=== PATIENT | female | born 1935 | race Caucasian/White ===

== ENCOUNTER 2017-01-27 11:21 | Emergency (ER) | payer MEDICARE ==
[~2017-01-27] VITALS: Ht 172.7 cm; Wt 118.7 kg
[~2017-01-27 11:21] MED LIST: ALPR0.25 PO; BIOTCAP PO; COZA100T PO; GLUCTAB6 PO; LEVEMIR SQ; LEVO150T46 PO; LEXA10TA PO; METF-324 PO; MULT1TAB46 PO; OMEP20TA PO; SIMV40TA PO; TOPR50TA PO; TRAM50 PO
[2017-01-27 11:25] VITALS: BP 179/75; PULSE 71; RESP 16; O2SAT 96
--- NOTE | 2017-01-27 11:40 | PD ---
HPI Chief Complaint: Head Injury Time Seen by Provider: 11:29 Travel History International Travel<30 days: No Contact w/Intl Traveler<30days: No Traveled to known affect area: No History of Present Illness HPI bout 30 min lpta, trip and fall, and struck her right forehead region, no loc, no bleeding, witnessed, states 4/10, worse when touched and alleviated by ice pack placed on bump....denies assoc symptoms of n/v/d/cp/abdpain/back pain/ visual changes/syncope/ chart and rn notes reviewed pcp is dr mercedes all:wanda inhibitors pmhx: htn, hyperchol, cabbg, and lap band PFSH Past Medical History Hx Anticoagulant Therapy: Yes Anxiety: Yes Heart Rhythm Problems: No Cancer: No Cardiac Catheterization: Yes Cardiovascular Problems: Yes (htn on meds, bypass 4 vessels, [place] ?) High Cholesterol: Yes Congestive Heart Failure: No Diabetes: Yes (type 2) Diminished Hearing: No Glaucoma: No Hepatitis: No Hiatal Hernia: No Hypertension: Yes Respiratory: Yes (SLEEP APNEA (CPAP)) Immunizations Current: Yes Myocardial Infarction: No Thyroid Disease: Yes ?: Not Menopausal: Yes Past Surgical History Cardiac Surgery: Yes (CABG) Coronary Artery Bypass Graft: Yes (FEB 2008- QUADRUPLE BYPASS) Eye Surgery: Yes (CATARACT SX RAY.) Oral Surgery: Yes (T & A) Pacemaker: No Tonsillectomy: Yes Other Surgery: Yes (LAP BAND) Social History Alcohol Use: Yes (occ) Tobacco Use: No Substance Use: No Allergies-Medications (Allergen,Severity, Reaction): Coded Allergies: benazepril (Unverified Allergy, Severe, 01/27/17) captopril (Unverified Allergy, Severe, 01/27/17) enalaprilat (Unverified Allergy, Severe, 01/27/17) fosinopril (Unverified Allergy, Severe, 01/27/17) lisinopril (Unverified Allergy, Severe, 01/27/17) quinapril (Unverified Allergy, Severe, 01/27/17) Reported Meds & Prescriptions Reported Meds & Active Scripts Active Reported Tresiba Flextouch Pen Inj (Insulin Degludec Inj) 600 unit/3 ML Pen 32 Units SQ Simvastatin 20 Mg Tab 20 Mg PO DAILY Omeprazole 20 Mg Tab 20 Mg PO DAILY Multiple Vitamin 1 Tab 1 Tab PO DAILY Metoprolol Succinate ER 24 HR (Metoprolol Succinate) 50 Mg Tab 75 Mg PO DAILY Metformin ER (Metformin HCl) 500 Mg Lou 500 Mg PO BID With evening meal Losartan (Losartan Potassium) 100 Mg Tab 100 Mg PO DAILY Levothyroxine (Levothyroxine Sodium) 137 Mcg Tab 137 Mcg PO DAILY Glucosamine-Chondroitin 500-400 Mg Tab 1 Tab PO DAILY Biotin 5 Mg Cap 5 Mg PO Alprazolam 0.25 Mg Tab 0.25 Mg PO Q6H PRN Review of Systems Except as stated in HPI: all other systems reviewed are Neg General / Constitutional: No: Fever Eyes: No: Visual changes HENT: Positive: Headaches Cardiovascular: No: Chest Pain or Discomfort Respiratory: No: Shortness of Breath Gastrointestinal: No: Abdominal Pain Genitourinary: No: Dysuria Musculoskeletal: No: Pain Skin: No Rash Neurologic: No: Weakness Psychiatric: No: Depression Endocrine: No: Polydipsia Hematologic/Lymphatic: No: Easy Bruising Physical Exam Narrative GENERAL: SKIN: Warm and dry. 5cm diameter contusion to right hemiforehead region, no laceration anywhere HEAD: Normocephalic. EYES: Pupils equal and round. No scleral icterus. No injection or drainage. ENT: No nasal bleeding or discharge. Mucous membranes pink and moist. no hemotympanum NECK: Trachea midline. No JVD. CARDIOVASCULAR: Regular rate and rhythm. RESPIRATORY: No accessory muscle use. Clear to auscultation. Breath sounds equal bilaterally. GASTROINTESTINAL: Abdomen soft, non-tender, nondistended. Hepatic and splenic margins not palpable. MUSCULOSKELETAL: Extremities without clubbing, cyanosis, or edema. No obvious deformities. NEUROLOGICAL: Awake and alert. No obvious cranial nerve deficits. Motor grossly within normal limits. Five out of 5 muscle strength in the arms and legs. Normal speech. PSYCHIATRIC: Appropriate mood and affect; insight and judgment normal. Data Data Last Documented VS Vital Signs Date Time Temp Pulse Resp B/P (MAP) Pulse Ox O2 Delivery O2 Flow Rate FiO2 01/27/17 11:25 71 16 179/75 (109) [address] Brain W/O Iv Contrast(Rout) (01/27/17 11:32) MDM Medical Decision Making Medical Screen Exam Complete: Yes Emergency Medical Condition: Yes Medical Record Reviewed: Yes Differential Diagnosis ich v skull fx v scalp contusion Narrative Course ct did not show any e/o ich nor any skull fx. patient is safe for d/c Procedures Procedure Narrative ct my interpretation: no ich, no skull fx, superficial rt frontal scalp hematoma noted only Diagnosis Primary Impression: Contusion of scalp, initial encounter Additional Impression: Abrasion, right knee, initial encounter Patient Instructions: Abrasion (ED), General Instructions, Scalp Contusion in Adults (ED) Scripts Tramadol (Ultram) 50 Mg Tab 50 MG PO Q6H Y for PAIN, #10 TAB 0 Refills Prov: Juno Gramajo MD 01/27/17 Disposition: 01 DISCHARGE HOME Condition: Stable Juno Gramajo MD Jan 27, 2017 11:40
[2017-01-27] MEDS ORDERED: METF500T4 PO (11:48)
[2017-01-27] MEDS ORDERED: BIOTCAP PO (11:48)
[2017-01-27] MEDS ORDERED: OMEP20TA93 PO (11:48)
[2017-01-27] MEDS ORDERED: SIMV20TA PO (11:48)
[2017-01-27] MEDS ORDERED: ALPR0.25 PO (11:48)
[2017-01-27] MEDS ORDERED: LOSA100T PO (11:48)
[2017-01-27] MEDS ORDERED: LEVO137T2 PO (11:48)
[2017-01-27] MEDS ORDERED: GLUC500T4 PO (11:48)
[2017-01-27] MEDS ORDERED: METO1TAB9 PO (11:48)
[2017-01-27] MEDS ORDERED: MULTTAB67 PO (11:48)
[2017-01-27] MEDS ORDERED: INSU1INJ13 SQ (11:52)
[2017-01-27] MEDS ORDERED: TRAM50 PO (12:10)
--- NOTE | 2017-01-27 12:10 | RADRPT ---
EXAM DATE/TIME: 01/27/2017 11:43 [facility] COMPARISON: No previous studies available for comparison. INDICATIONS : Fell and hit forehead. Right forehead swelling. RADIATION DOSE: 61.65 CTDIvol (mGy) MEDICAL HISTORY : Hypertension. Cardiovascular disease Diabetes mellitus type 2. SURGICAL HISTORY : CABG ENCOUNTER: Initial ACUITY: 1 day PAIN SCALE: 4/10 LOCATION: cranial TECHNIQUE: Multiple contiguous axial images were obtained of the head. Using automated exposure control and adj ustment of the mA and/or kV according to patient size, radiation dose was kept as low as reasonably a chievable to obtain optimal diagnostic quality images. DICOM format image data is available electro nically for review and comparison. FINDINGS: CEREBRUM: The ventricles are normal for age. No evidence of midline shift, mass lesion, hemorrhage or acute in farction. No extra-axial fluid collections are seen. POSTERIOR FOSSA: The cerebellum and brainstem are intact. The 4th ventricle is midline. The cerebellopontine angle i s unremarkable. EXTRACRANIAL: The visualized portion of the orbits is intact. SKULL: The calvaria is intact. No evidence of skull fracture. CONCLUSION: 1. No acute intracranial abnormalities. Right frontal scalp hematoma. Johann Wood MD on January 27, 2017 at 12:08 Board Certified Radiologist. This report was verified electronically.
== END 2017-01-27 12:25 | disposition home or self-care (01) ==
LOC: PHED 11:21
DX: S00.03XA Contusion of scalp, initial encounter (principal); S80.211A Abrasion, right knee, initial encounter; E78.00 Pure hypercholesterolemia, unspecified; E11.9 Type 2 diabetes mellitus without complications; I10 Essential (primary) hypertension; I25.10 Atherosclerotic heart disease of native coronary artery without angina pectoris; W01.0XXA Fall on same level from slipping, tripping and stumbling without subsequent striking against object, initial encounter; Z95.1 Presence of aortocoronary bypass graft
CPT/HCPCS: 70450

== ENCOUNTER 2017-03-24 10:29 | Emergency (ER) | payer MEDICARE ==
[~2017-03-24] VITALS: Ht 170.2 cm; Wt 117.0 kg
[~2017-03-24 10:29] MED LIST changes: -COZA100T PO; +GLUC500T4 PO; -GLUCTAB6 PO; +INSU1INJ13 SQ; -LEVEMIR SQ; +LEVO137T2 PO; -LEVO150T46 PO; -LEXA10TA PO; +LOSA100T PO; -METF-324 PO; +METF500T4 PO; +METO1TAB9 PO; -MULT1TAB46 PO; +MULTTAB67 PO; -OMEP20TA PO; +OMEP20TA93 PO; +SIMV20TA PO; -SIMV40TA PO; -TOPR50TA PO
[2017-03-24 10:32] VITALS: BP 171/77; PULSE 80; RESP 22; TEMP 98; O2SAT 97
[2017-03-24] MEDS ORDERED: METO25TA3 PO (10:59)
[2017-03-24] MEDS ORDERED: PLAV75TA29 PO (11:03)
[2017-03-24] MEDS ORDERED: FURO1TAB60 PO (11:03)
[2017-03-24] MEDS ORDERED: ASPI81TA23 PO (11:03)
[2017-03-24] MEDS ORDERED: INSU1INJ14 SQ (11:03)
[2017-03-24] MEDS ORDERED: CETI10TA71 PO (11:41)
[2017-03-24] MEDS ORDERED: BIOTSPR PO (11:41)
--- NOTE | 2017-03-24 11:42 | PD ---
HPI Chief Complaint: Cold / Flu Symptoms Time Seen by Provider: 11:30 Travel History International Travel<30 days: No Contact w/Intl Traveler<30days: No Traveled to known affect area: No History of Present Illness HPI The patient 81-year-old female who arrives with hemoptysis since last night. She reports a cough for the past 2 weeks. Rhinorrhea is also reported. She takes Plavix and aspirin. The end of January the patient underwent a TAVR. She reports minimal sputum with minimal droplets of blood and tissue paper. Total quantity was nothing close to a pint glass. No chest pain shortness of breath or suggestion of symptomatic anemia otherwise. Additional symptoms include rhinorrhea. Cough drops have not been very helpful. PFSH Past Medical History Hx Anticoagulant Therapy: Yes (PLAVIX) Anxiety: Yes Heart Rhythm Problems: No Cancer: No Cardiac Catheterization: Yes Cardiovascular Problems: Yes (htn on meds, bypass 4 vessels, [place] ?, PACEMAKER, AORTIC VALVE REPLACEMENT) High Cholesterol: Yes Congestive Heart Failure: No Diabetes: Yes (type 2) Patient Takes Glucophage: Yes Diminished Hearing: No Glaucoma: No Hepatitis: No Hiatal Hernia: No Hypertension: Yes Medical other: Yes (HX ULCERS) Respiratory: Yes (SLEEP APNEA (CPAP)) Immunizations Current: Yes Myocardial Infarction: No Thyroid Disease: Yes Ulcer: Yes Tetanus Vaccination: < 5 Years Influenza Vaccination: Yes ?: Not Menopausal: Yes Past Surgical History Cardiac Surgery: Yes (CABG, heart valve replaced TAVR) Coronary Artery Bypass Graft: Yes (FEB 2008- QUADRUPLE BYPASS) Eye Surgery: Yes (CATARACT SX RAY.) Oral Surgery: Yes (T & A) Pacemaker: Yes Tonsillectomy: Yes Other Surgery: Yes (LAP BAND) Social History Alcohol Use: Yes (occ mix drinks) Tobacco Use: No (quit smoking cigs in 1968) Substance Use: No Allergies-Medications (Allergen,Severity, Reaction): Coded Allergies: benazepril (Unverified Allergy, Severe, 03/24/17) captopril (Unverified Allergy, Severe, 03/24/17) enalaprilat (Unverified Allergy, Severe, 03/24/17) fosinopril (Unverified Allergy, Severe, 03/24/17) lisinopril (Unverified Allergy, Severe, 03/24/17) quinapril (Unverified Allergy, Severe, 03/24/17) Reported Meds & Prescriptions Reported Meds & Active Scripts Active Reported Plavix (Clopidogrel Bisulfate) 75 Mg Tab 75 Mg PO DAILY Lasix (Furosemide) 40 Mg Tab 40 Mg PO DAILY Tresiba Flextouch Pen Inj (Insulin Degludec Inj) 300 unit/3 ML Pen 40 Units SQ DAILY Aspirin EC (Aspirin) 81 Mg Tabdr 81 Mg PO DAILY Metoprolol Tartrate 25 Mg Tab 25 Mg PO BID Simvastatin 20 Mg Tab 20 Mg PO DAILY Omeprazole 20 Mg Tab 20 Mg PO DAILY Multiple Vitamin 1 Tab 1 Tab PO DAILY Metformin ER (Metformin HCl) 500 Mg Lou 1,000 Mg PO BID With evening meal Levothyroxine (Levothyroxine Sodium) 137 Mcg Tab 137 Mcg PO DAILY Glucosamine-Chondroitin 500-400 Mg Tab 1 Tab PO DAILY Biotin 5 Mg Cap 5 Mg PO Alprazolam 0.25 Mg Tab 0.25 Mg PO Q6H PRN Review of Systems Except as stated in HPI: all other systems reviewed are Neg General / Constitutional: No: Fever Physical Exam Narrative GENERAL: 81-year-old female pleasant well-nourished well-developed no acute distress SKIN: Warm and dry. HEAD: Atraumatic. Normocephalic. EYES: Pupils equal and round. No scleral icterus. No injection or drainage. ENT: No nasal bleeding or discharge. Mucous membranes pink and moist. Posterior oropharynx is hyperemic with clear visualization of some vasculature concerning for inflammation/irritation from repetitive coughing. NECK: Trachea midline. No JVD. CARDIOVASCULAR: Regular rate and rhythm. RESPIRATORY: No accessory muscle use. Clear to auscultation. Breath sounds equal bilaterally. GASTROINTESTINAL: Abdomen soft, non-tender, nondistended. Hepatic and splenic margins not palpable. MUSCULOSKELETAL: Extremities without clubbing, cyanosis, or edema. No obvious deformities. NEUROLOGICAL: Awake and alert. No obvious cranial nerve deficits. Motor grossly within normal limits. Five out of 5 muscle strength in the arms and legs. Normal speech. PSYCHIATRIC: Appropriate mood and affect; insight and judgment normal. Data Data Last Documented VS Vital Signs Date Time Temp Pulse Resp B/P (MAP) Pulse Ox O2 Delivery O2 Flow Rate FiO2 03/24/17 10:53 83 16 97 Room Air 03/24/17 10:32 98.0 171/77 (108) Vital signs reviewed MDM Medical Decision Making Medical Screen Exam Complete: Yes Emergency Medical Condition: Yes Medical Record Reviewed: Yes Differential Diagnosis Massive amounts, or masses, pneumonia, postnasal drip Narrative Course Overall presentation is concerning for localized oropharyngeal irritation from repetitive coughing in the presence of Plavix and aspirin. The patient will continue Plavix and aspirin. Postnasal drip is likely the etiology of this cough and will prescribe cetirizine. At home and treatment modalities discussed. Follow up with Dr. Johnson. Diagnosis Primary Impression: Post-nasal drip Referrals: Primary Care Physician 2 days Med/Other Pt SpecificInfo: Prescription(s) given Scripts Artificial Saliva Liq (Biotene Moisturizing Mouth Panther Liq) 1 Panther 3 SPRAY PO QID for Dry Mouth, #45 ML 0 Refills Prov: Santo Gage MD 03/24/17 Cetirizine (All Day Allergy) 10 Mg Tab 10 MG PO DAILY for Allergies for 14 Days, #14 TAB 0 Refills Prov: Santo Gage MD 03/24/17 Disposition: 01 DISCHARGE HOME Condition: Stable Santo Gage MD Mar 24, 2017 11:42
[2017-03-24 12:21] VITALS: BP 163/72
== END 2017-03-24 12:22 | disposition home or self-care (01) ==
LOC: PHED 10:29
DX: R09.82 Postnasal drip (principal); E78.00 Pure hypercholesterolemia, unspecified; E11.9 Type 2 diabetes mellitus without complications; I10 Essential (primary) hypertension; Z95.0 Presence of cardiac pacemaker; Z95.1 Presence of aortocoronary bypass graft; Z87.891 Personal history of nicotine dependence; Z79.02 Long term (current) use of antithrombotics/antiplatelets; Z95.2 Presence of prosthetic heart valve; Z79.84 Long term (current) use of oral hypoglycemic drugs; Z79.82 Long term (current) use of aspirin
CPT/HCPCS: 99282

== ENCOUNTER 2017-06-20 14:15 | Observation (INO) | payer MEDICARE ==
[~2017-06-20] VITALS: Ht 170.2 cm; Wt 122.0 kg
[~2017-06-20 14:15] MED LIST changes: +ASPI81TA23 PO; +BIOTSPR PO; +CETI10TA71 PO; +FURO1TAB60 PO; -INSU1INJ13 SQ; +INSU1INJ14 SQ; -LOSA100T PO; -METO1TAB9 PO; +METO25TA3 PO; +PLAV75TA29 PO; -TRAM50 PO
[2017-06-20 14:17] VITALS: BP 173/76; PULSE 78; RESP 18; TEMP 97.7; O2SAT 97
[2017-06-20 14:46] LABS: AUTOMATED NEUTROPHIL # 7.2 TH/MM3 (1.8-7.7); BASOPHIL # 0.1 TH/MM3 (0-0.2); BASOPHIL % 0.8 % (0.0-2.0); EOSINOPHIL # 0.4 TH/MM3 (0-0.4); EOSINOPHIL % 3.5 % (0.0-4.0); HEMATOCRIT 39.1 % (35.0-46.0); HEMOGLOBIN 12.9 GM/DL (11.6-15.3); LYMPH % 28.7 % (9.0-44.0); LYMPHOCYTE # 3.5 TH/MM3 (1.0-4.8); MEAN CELL VOLUME 86.5 FL (80.0-100.0); MEAN CORPUSCULAR HEMOGLOBIN 28.5 PG (27.0-34.0); MEAN PLATELET VOLUME 7.8 FL (7.0-11.0); MONO % 8.6 % (0.0-8.0); MONOCYTE # 1.1 TH/MM3 (0-0.9); NEUT % 58.4 % (16.0-70.0); PLATELET COUNT 256 TH/MM3 (150-450); RED BLOOD COUNT 4.52 MIL/MM3 (4.00-5.30); RED CELL DISTRIBUTION WIDTH 14.2 % (11.6-17.2); WHITE BLOOD COUNT 12.3 TH/MM3 (4.0-11.0)
--- NOTE | 2017-06-20 14:49 | PD ---
HPI Chief Complaint: Neuro Symptoms/ Deficits Time Seen by Provider: 14:21 Travel History International Travel<30 days: No Contact w/Intl Traveler<30days: No Traveled to known affect area: No History of Present Illness HPI 81-year-old female says that around 9:00 today she noted that her right leg seemed weaker than normal. The legs are generally weak but the right side seemed worse around 9. She also noted some weakness of the right arm. She did not notice any abnormality with the face. He does not have a headache. She has no history of stroke. She does have significant cardiac history. She had bypass surgery in 2007. She has had a pacemaker and a T AVR done last January and is currently on aspirin and Plavix. She has been ambulatory but she says that she feels more unsteady than usual on her feet. PFSH Past Medical History Hx Anticoagulant Therapy: Yes Anxiety: Yes Heart Rhythm Problems: No Cancer: No Cardiac Catheterization: Yes Cardiovascular Problems: Yes High Cholesterol: Yes Congestive Heart Failure: No Diabetes: Yes Diminished Hearing: No Glaucoma: No Hepatitis: No Hiatal Hernia: No Hypertension: Yes Respiratory: Yes (SLEEP APNEA (CPAP)) Immunizations Current: Yes Myocardial Infarction: No Thyroid Disease: Yes Ulcer: Yes ?: Not Menopausal: Yes Past Surgical History Cardiac Surgery: Yes (CABG, heart valve replaced TAVR) Coronary Artery Bypass Graft: Yes (FEB 2008- QUADRUPLE BYPASS) Eye Surgery: Yes (CATARACT SX RAY.) Oral Surgery: Yes (T & A) Pacemaker: Yes Tonsillectomy: Yes Other Surgery: Yes (LAP BAND) Social History Alcohol Use: Yes (occ mix drinks) Tobacco Use: No (quit smoking cigs in 1968) Substance Use: No Allergies-Medications (Allergen,Severity, Reaction): Coded Allergies: benazepril (Unverified Allergy, Severe, 06/20/17) captopril (Unverified Allergy, Severe, 06/20/17) enalaprilat (Unverified Allergy, Severe, 06/20/17) fosinopril (Unverified Allergy, Severe, 06/20/17) lisinopril (Unverified Allergy, Severe, 06/20/17) quinapril (Unverified Allergy, Severe, 06/20/17) Reported Meds & Prescriptions Reported Meds & Active Scripts Active Biotene Moisturizing Mouth Barron Liq (Artificial Saliva Liq) 1 Barron 3 Barron PO QID All Day Allergy (Cetirizine HCl) 10 Mg Tab 10 Mg PO DAILY 14 Days Reported Plavix (Clopidogrel Bisulfate) 75 Mg Tab 75 Mg PO DAILY Lasix (Furosemide) 40 Mg Tab 40 Mg PO DAILY Tresiba Flextouch Pen Inj (Insulin Degludec Inj) 300 unit/3 ML Pen 40 Units SQ DAILY Aspirin EC (Aspirin) 81 Mg Tabdr 81 Mg PO DAILY Metoprolol Tartrate 25 Mg Tab 25 Mg PO BID Simvastatin 20 Mg Tab 20 Mg PO DAILY Omeprazole 20 Mg Tab 20 Mg PO DAILY Multiple Vitamin 1 Tab 1 Tab PO DAILY Metformin ER (Metformin HCl) 500 Mg Lou 1,000 Mg PO BID With evening meal Levothyroxine (Levothyroxine Sodium) 137 Mcg Tab 137 Mcg PO DAILY Glucosamine-Chondroitin 500-400 Mg Tab 1 Tab PO DAILY Biotin 5 Mg Cap 5 Mg PO Alprazolam 0.25 Mg Tab 0.25 Mg PO Q6H PRN Review of Systems General / Constitutional: No: Fever, Chills Eyes: No: Diploplia, Blurred Vision HENT: No: Headaches Cardiovascular: No: Chest Pain or Discomfort, Palpitations Respiratory: No: Cough, Shortness of Breath Gastrointestinal: No: Nausea, Vomiting Genitourinary: No: Urgency, Frequency Musculoskeletal: No: Myalgias, Arthralgias Neurologic: Positive: Weakness Endocrine: No: Heat Intolerance Hematologic/Lymphatic: No: Easy Bruising Physical Exam Narrative GENERAL: Well-developed female SKIN: Focused skin assessment warm/dry. HEAD: Atraumatic. Normocephalic. EYES: Pupils equal and round. No scleral icterus. No injection or drainage. ENT: No nasal bleeding or discharge. Mucous membranes pink and moist. NECK: Trachea midline. No JVD. CARDIOVASCULAR: Regular rate and rhythm. No murmur appreciated. RESPIRATORY: No accessory muscle use. Clear to auscultation. Breath sounds equal bilaterally. GASTROINTESTINAL: Abdomen soft, non-tender, nondistended. Hepatic and splenic margins not palpable. MUSCULOSKELETAL: No obvious deformities. No clubbing. No cyanosis. No edema. NEUROLOGICAL: Awake and alert. No obvious cranial nerve deficits. Speech is normal. There is a mild drift of the right arm. There is good strength in plantar and dorsiflexion of the feet. There is some slight weakness on flexion of the hip PSYCHIATRIC: Appropriate mood and affect; insight and judgment normal. Data Data Last Documented VS Vital Signs Date Time Temp Pulse Resp B/P (MAP) Pulse Ox O2 Delivery O2 Flow Rate FiO2 06/20/17 14:17 97.7 78 18 173/76 (108) 97 Orders Orders Electrocardiogram (06/20/17 14:29) Complete Blood Count With Diff (06/20/17 14:29) Comprehensive Metabolic Panel (06/20/17 14:29) Prothrombin Time / Inr (Pt) (06/20/17 14:29) Act Partial Throm Time (Ptt) (06/20/17 14:29) Magnesium (Mg) (06/20/17 14:29) Ct Brain W/O Iv Contrast(Rout) (06/20/17 14:29) I-Stat Profile (06/20/17 14:35) Labs Laboratory Tests Test 06/20/17 14:35 White Blood Count 12.3 TH/MM3 Red Blood Count 4.52 MIL/MM3 Hemoglobin 12.9 GM/DL Hematocrit 39.1 % Mean Corpuscular Volume 86.5 FL Mean Corpuscular Hemoglobin 28.5 PG Mean Corpuscular Hemoglobin Concent 33.0 % Red Cell Distribution Width 14.2 % Platelet Count 256 TH/MM3 Mean Platelet Volume 7.8 FL Neutrophils (%) (Auto) 58.4 % Lymphocytes (%) (Auto) 28.7 % Monocytes (%) (Auto) 8.6 % Eosinophils (%) (Auto) 3.5 % Basophils (%) (Auto) 0.8 % Neutrophils # (Auto) 7.2 TH/MM3 Lymphocytes # (Auto) 3.5 TH/MM3 Monocytes # (Auto) 1.1 TH/MM3 Eosinophils # (Auto) 0.4 TH/MM3 Basophils # (Auto) 0.1 TH/MM3 CBC Comment DIFF FINAL Differential Comment Prothrombin Time 10.1 SEC Prothromb Time International Ratio 1.0 RATIO Activated Partial Thromboplast Time 26.7 SEC [facility] Medical Decision Making Medical Screen Exam Complete: Yes Emergency Medical Condition: Yes Medical Record Reviewed: Yes Differential Diagnosis Differential includes CVA, hemorrhage, tumor Narrative Course CT scan shows development of bifrontal white matter lacunes since January 27, 2017 Diagnosis Primary Impression: Acute right-sided weakness Jose Esparza MD Jun 20, 2017 14:49
--- NOTE | 2017-06-20 14:54 | RADRPT ---
EXAM DATE/TIME: 06/20/2017 14:39 [facility] COMPARISON: CT BRAIN W/O CONTRAST, January 27, 2017, 11:43. INDICATIONS : Right sided arm and leg weakness since this morning. RADIATION DOSE: 56.09 CTDIvol (mGy) MEDICAL HISTORY : Cardiovascular disease. Hypertension. Ulcers. SURGICAL HISTORY : CABG Pacemaker.TAVR. ENCOUNTER: Initial ACUITY: 1 day PAIN SCALE: 0/10 LOCATION: cranial TECHNIQUE: Multiple contiguous axial images were obtained of the head. Using automated exposure control and adj ustment of the mA and/or kV according to patient size, radiation dose was kept as low as reasonably a chievable to obtain optimal diagnostic quality images. DICOM format image data is available electro nically for review and comparison. FINDINGS: There are small areas of diminished density in the subcortical white matter and high convexity fronta l regions bilaterally which were not clearly present previously and are likely white matter lacunar i nfarcts which would be nonacute by appearance. There is no evidence of hemorrhage or mass. Ventricles are stable symmetric and normal. Extracranial structures are stable, benign and intact. CONCLUSION: Interval development of bifrontal white matter lacune's. Yang Bob MD on June 20, 2017 at 14:49 Board Certified Radiologist. This report was verified electronically.
[2017-06-20 15:01] LABS: PROTHROMBIN TIME - PATIENT 10.1 SEC (9.8-11.6)
[2017-06-20] MEDS ORDERED: GLIM1TAB PO (15:07)
--- NOTE | 2017-06-20 15:09 | PD ---
Physical Exam Date Seen by Provider: Jun 20, 2017 Time Seen by Provider: 15:06 Narrative The patient is a 81-year-old female who was initially evaluated by the previous physician, Dr. Collado. Please refer to the initial history, physical, diagnostic evaluation, and treatment modality plan. The patient was signed out at 3 PM with laboratory evaluation and subsequent admission pending for CVA with right-sided deficits. Data Data Last Documented VS Vital Signs Date Time Temp Pulse Resp B/P (MAP) Pulse Ox O2 Delivery O2 Flow Rate FiO2 06/20/17 14:17 97.7 78 18 173/76 (108) 97 Orders Orders Electrocardiogram (06/20/17 14:29) Complete Blood Count With Diff (06/20/17 14:29) Comprehensive Metabolic Panel (06/20/17 14:29) Prothrombin Time / Inr (Pt) (06/20/17 14:29) Act Partial Throm Time (Ptt) (06/20/17 14:29) Magnesium (Mg) (06/20/17 14:29) Ct Brain W/O Iv Contrast(Rout) (06/20/17 14:29) I-Stat Profile (06/20/17 14:35) Aspirin Chew (Aspirin Chew) (06/20/17 15:30) Admit Order (Ed Use Only) (06/20/17 16:10) Labs Laboratory Tests Test 06/20/17 14:35 White Blood Count 12.3 TH/MM3 Red Blood Count 4.52 MIL/MM3 Hemoglobin 12.9 GM/DL Bedside Hemoglobin 12.9 G/DL Hematocrit 39.1 % Bedside Hematocrit 38.0 % Mean Corpuscular Volume 86.5 FL Mean Corpuscular Hemoglobin 28.5 PG Mean Corpuscular Hemoglobin Concent 33.0 % Red Cell Distribution Width 14.2 % Platelet Count 256 TH/MM3 Mean Platelet Volume 7.8 FL Neutrophils (%) (Auto) 58.4 % Lymphocytes (%) (Auto) 28.7 % Monocytes (%) (Auto) 8.6 % Eosinophils (%) (Auto) 3.5 % Basophils (%) (Auto) 0.8 % Neutrophils # (Auto) 7.2 TH/MM3 Lymphocytes # (Auto) 3.5 TH/MM3 Monocytes # (Auto) 1.1 TH/MM3 Eosinophils # (Auto) 0.4 TH/MM3 Basophils # (Auto) 0.1 TH/MM3 CBC Comment DIFF FINAL Differential Comment Prothrombin Time 10.1 SEC Prothromb Time International Ratio 1.0 RATIO Activated Partial Thromboplast Time 26.7 SEC Bedside Sodium 142 MMOL/L Bedside Potassium 4.4 MMOL/L Bedside Chloride 104 MMOL/L Bedside Blood Urea Nitrogen 38 MG/DL Bedside Creatinine 0.9 MG/DL Bedside Glucose 117 MG/DL [facility] Medical Record Reviewed: Yes Supervised Visit with KAYLA: No Interpretation(s) EKG reveals electronic ventricular pacemaker. No further analysis noted. Rate 74. Last Impressions Head CT 06/20/17 1429 Signed Impressions: Service Date/Time: Tuesday, June 20, 2017 14:39 - CONCLUSION: Interval development of bifrontal white matter lacune's. Yang Bob MD Differential Diagnosis Differential diagnosis includes CVA, TIA, intracranial hemorrhage, complicated migraine, seizure, hyponatremia, MS. Narrative Course The patient is a 81-year-old female who was initially evaluated by Dr. Collado. Please refer to the initial history, physical, diagnostic evaluation, treatment modality and clear and treatment modality plan. Patient was noted to have right-sided deficits suspicious for CVA, symptoms were at 9 AM, patient was not administered TPA by the previous physician. The patient is already taking Plavix and aspirin. The patient does have [facility]. Signout was given with the intent for admission for CVA workup. I discussed the patient with Dr. Ellis at 3:12 PM, after discussion was agreed the patient is not a candidate for acute TPA or CTA as a stroke scale is low. She does have mild drift the right upper extremity weakness with flexion of the right hip but no dysarthria. The patient is Parminder on Plavix and aspirin and will be admitted. Physician Communication Physician Communication The on-call [facility] physician was paged for admission. I discussed the patient with Dr. Vyas who agrees with 23 hour observation. Diagnosis Primary Impression: CVA (cerebral vascular accident) Qualified Codes: I63.9 - Cerebral infarction, unspecified Additional Impression: Acute right-sided weakness Admitting Information Admitting Physician Requests: Admit Condition: Stable Dick Caballero MD Jun 20, 2017 15:09
[2017-06-20] MEDS ORDERED: ASPIRIN 81 MG CHEW TAB CHEW ONE (15:30)
--- NOTE | 2017-06-20 16:45 | HHI.HP ---
HPI Service [facility] Hospitalists Primary Care Physician Vasile Johnson M.D. Admission Diagnosis CVA with right-sided weakness, dysarthria resolved Chief Complaint: right sided weakness, speech disturbance Travel History International Travel<30 Days: No Contact w/Intl Traveler <30 Da: No Traveled to Known Affected Are: No History of Present Illness 81-year-old female says that around 9:00 AM today she noted that her right leg seemed weaker than normal. The legs are generally weak but the right side seemed worse around 9 and typically her left leg is the weaker one. She also noted some weakness of the right arm. She did not notice any abnormality with the face. No headache or visual changes. She has no history of stroke. She does have significant cardiac history. She had four-vessel bypass surgery in 2007. She has had a pacemaker and a T AVR performed in January 2017 and is currently on aspirin and Plavix. She has been ambulatory but she says that she feels more unsteady than usual on her feet. She has a long history of falls which she said is not unchanged for her. She also reportedly had some problems with speech earlier on this morning but now that has resolved. In fact her right upper extremity weakness has significantly improved basically back to baseline. She states that she still feels a little weak in the right leg and it feels a bit heavy to her but that too has improved. She denies any chest pain, palpitations or increased shortness of breath. She notes that she has chronic shortness of breath with dyspnea on exertion which is actually why she had the aortic valve replacement. Unfortunately her respiratory symptomatology has not really improved since she had the TAVR procedure. Denies any fevers or chills or recent cough. Initial CT of the brain demonstrates some lacunar infarcts which appeared to have occurred in the interim between the previous CT brain and the current one. It is still questionable as to whether her valve and pacer are compatible with our particular MRI machines. I have discussed this with radiology and they will do some research to see if compatible. It is noted that pacer rep will have to be present to place the pacer in MR mode and apparently will need an order from the patient's land checker regarding this as well. Review of Systems Constitutional: COMPLAINS OF: Fatigue, DENIES: Diaphoretic episodes, Fever, Weight gain, Weight loss, Chills, Dizziness, Change in appetite, Night Sweats Eyes: DENIES: Blurred vision, Diplopia, Eye inflammation, Eye pain, Vision loss , Photosensitivity, Double Vision Ears, nose, mouth, throat: DENIES: Tinnitus, Hearing loss, Vertigo, Nasal discharge, Oral lesions, Throat pain, Hoarseness, Ear Pain, Running Nose, Epistaxis, Sinus Pain, Toothache, Odynophagia Respiratory: COMPLAINS OF: Shortness of breath, DENIES: Apneas, Cough, Snoring , Wheezing, Hemoptysis, Sputum production Cardiovascular: COMPLAINS OF: Dyspnea on Exertion, DENIES: Chest pain, Palpitations, Syncope, PND, Lower Extremity Edema, Orthopnea, Claudication Gastrointestinal: DENIES: Abdominal pain, Black stools, Bloody stools, BRB per rectum, Constipation, Diarrhea, GERD, Nausea, Reflux, Vomiting, Difficulty Swallowing, Anorexia, See HPI Musculoskeletal: COMPLAINS OF: Joint pain Integumentary: DENIES: Abnormal pigmentation, Pruritus, Rash, Nail changes, Breast masses, Breast skin changes, Nipple discharge Hematologic/lymphatic: COMPLAINS OF: Bruising Immunologic/allergic: DENIES: Eczema, Urticaria Neurologic: COMPLAINS OF: Abnormal gait, Localized weakness, Speech Problems, Poor Balance, DENIES: Headache, Paresthesias, Seizures, Tremor Psychiatric: COMPLAINS OF: Anxiety, Depression, DENIES: Confusion, Mood changes , Hallucinations, Agitation, Suicidal Ideation, Homicidal Ideation, Delusions, History of Bipolar, History of Schizophrenia Past Family Social History Past Medical History Anxiety Aortic stenosis...s/p TAVR DM neph/retinopathy GERD hyperlipidemia htn hypothyroidism MDD Morbid obesity Parox V-tach Pulm HTN YUMIKO Past Surgical History CABG x4 in 2007 Cataract surgery bilat Gastric band Pacer placement for asystole following TAVR 01/2017 TAVR 01/2017 Echo Feb 2017 with biprosthetic aortic valve and EF 55% T&A Reported Medications Biotene Moisturizing Mouth [place] Liq (Artificial Saliva Liq) 1 [place] 3 [place] PO QID All Day Allergy (Cetirizine HCl) 10 Mg Tab 10 Mg PO DAILY 14 Days Plavix (Clopidogrel Bisulfate) 75 Mg Tab 75 Mg PO DAILY Lasix (Furosemide) 40 Mg Tab 40 Mg PO DAILY Tresiba Flextouch Pen Inj (Insulin Degludec Inj) 300 unit/3 ML Pen 40 Units SQ DAILY Aspirin EC (Aspirin) 81 Mg Tabdr 81 Mg PO DAILY Metoprolol Tartrate 25 Mg Tab 25 Mg PO BID Simvastatin 20 Mg Tab 20 Mg PO DAILY Omeprazole 20 Mg Tab 20 Mg PO DAILY Multiple Vitamin 1 Tab 1 Tab PO DAILY Metformin ER (Metformin HCl) 500 Mg Lou 1,000 Mg PO BID With evening meal Levothyroxine (Levothyroxine Sodium) 137 Mcg Tab 137 Mcg PO DAILY Glucosamine-Chondroitin 500-400 Mg Tab 1 Tab PO DAILY Biotin 5 Mg Cap 5 Mg PO Alprazolam 0.25 Mg Tab 0.25 Mg PO Q6H PRN Allergies: Coded Allergies: benazepril (Unverified Allergy, Severe, 06/20/17) captopril (Unverified Allergy, Severe, 06/20/17) enalaprilat (Unverified Allergy, Severe, 06/20/17) fosinopril (Unverified Allergy, Severe, 06/20/17) lisinopril (Unverified Allergy, Severe, 06/20/17) quinapril (Unverified Allergy, Severe, 06/20/17) Family History Mother and Father both had strokes later in their 70s or 80s. Sister had cervical CA DM in several family members Social History No tobacco in 30 yrs, but smoked 1ppd for 15 yrs prior to stopping Occasional EtOH, mixed drink No illicits Retired [employer] Originally from [place], she has been in [place] since the 1960s Physical Exam Vital Signs Vital Signs Date Time Temp Pulse Resp B/P (MAP) Pulse Ox O2 Delivery O2 Flow Rate FiO2 06/20/17 14:17 97.7 78 18 173/76 (108) 97 Physical Exam GENERAL: This is a well-nourished, obese, well-developed patient, in no apparent distress. Alert and oriented. SKIN: No rashes, ecchymoses or lesions. Cool and dry. HEAD: Atraumatic. Normocephalic. No temporal or scalp tenderness. EYES: Pupils equal round and reactive. Extraocular motions intact. No scleral icterus. No injection or drainage. ENT: Nose without bleeding, purulent drainage or septal hematoma. Airway patent. NECK: Trachea midline. No JVD or lymphadenopathy. Supple, nontender, no meningeal signs. No bruits. CARDIOVASCULAR: Regular rate and rhythm without murmurs, gallops, or rubs. RESPIRATORY: Clear to auscultation. Breath sounds equal bilaterally. No wheezes , rales, or rhonchi. GASTROINTESTINAL: Abdomen soft, non-tender, nondistended. No hepato-splenomegaly , or palpable masses. No guarding. MUSCULOSKELETAL: Extremities without clubbing, cyanosis, or edema. No joint tenderness, effusion, or edema noted. No calf tenderness. Moves all extremities well. NEUROLOGICAL: Awake and alert. Cranial nerves II through XII intact. Motor and sensory grossly within normal limits. 5 out of 5 strength in both upper extremities. Equivocal weakness of approximately 4.5 out of 5 right lower extremity. Normal speech. No facial droop. Laboratory Laboratory Tests Test 06/20/17 14:35 White Blood Count 12.3 Red Blood Count 4.52 Hemoglobin 12.9 Bedside Hemoglobin 12.9 Hematocrit 39.1 Bedside Hematocrit 38.0 Mean Corpuscular Volume 86.5 Mean Corpuscular Hemoglobin 28.5 Mean Corpuscular Hemoglobin Concent 33.0 Red Cell Distribution Width 14.2 Platelet Count 256 Mean Platelet Volume 7.8 Neutrophils (%) (Auto) 58.4 Lymphocytes (%) (Auto) 28.7 Monocytes (%) (Auto) 8.6 Eosinophils (%) (Auto) 3.5 Basophils (%) (Auto) 0.8 Neutrophils # (Auto) 7.2 Lymphocytes # (Auto) 3.5 Monocytes # (Auto) 1.1 Eosinophils # (Auto) 0.4 Basophils # (Auto) 0.1 CBC Comment DIFF FINAL Differential Comment Prothrombin Time 10.1 Prothromb Time International Ratio 1.0 Activated Partial Thromboplast Time 26.7 Bedside Sodium 142 Bedside Potassium 4.4 Bedside Chloride 104 Bedside Blood Urea Nitrogen 38 Bedside Creatinine 0.9 Bedside Glucose 117 Result Diagram: 06/20/17 1435 Imaging Last [address] 06/20/17 1429 Signed Impressions: Service Date/Time: Tuesday, June 20, 2017 14:39 - CONCLUSION: Interval development of bifrontal white matter lacune's. MD Juanito Oliva VTE Risk Assessment Juanito VTE Risk Assessment: Mod/High Risk (score >= 2) Caprini Risk Assessment Model Point Value = 1 Point Value = 2 Point Value = 3 Point Value = 5 Age 41-60 Minor surgery BMI > 25 kg/m2 Swollen legs Varicose veins or History of unexplained or recurrent spontaneous Oral contraceptives or hormone replacement Sepsis (< 1 month) Serious lung disease, including pneumonia (< 1 month) Abnormal pulmonary function Acute myocardial infarction Congestive heart failure (< 1 month) History of inflammatory bowel disease Medical patient at bed rest Age 61-74 Arthroscopic surgery Major open surgery (> 45 min) Laparoscopic surgery (> 45 min) Malignancy Confined to bed (> 72 hours) Immobilizing plaster cast Central venous access Age >= 75 History of VTE Family history of VTE Factor V Leiden Prothrombin [id number] Lupus anticoagulant Anticardiolipin antibodies Elevated serum homocysteine Heparin-induced thrombocytopenia Other congenital or acquired thrombophilia Stroke (< 1 month) Elective arthroplasty Hip, pelvis, or leg fracture Acute spinal cord injury (< 1 month) Prophylaxis Regimen Total Risk Factor Score Risk Level Prophylaxis Regimen 0-1 Low Early ambulation 2 Moderate Order ONE of the following: *Sequential Compression Device (SCD) *Heparin 5000 units SQ BID 3-4 Higher Order ONE of the following medications: *Heparin 5000 units SQ TID *Enoxaparin/Lovenox 40 mg SQ daily (WT < 150 kg, CrCl > 30 mL/min) *Enoxaparin/Lovenox 30 mg SQ daily (WT < 150 kg, CrCl > 10-29 mL/min) *Enoxaparin/Lovenox 30 mg SQ BID (WT < 150 kg, CrCl > 30 mL/min) AND/OR *Sequential Compression Device (SCD) 5 or more Highest Order ONE of the following medications: *Heparin 5000 units SQ TID (Preferred with Epidurals) *Enoxaparin/Lovenox 40 mg SQ daily (WT < 150 kg, CrCl > 30 mL/min) *Enoxaparin/Lovenox 30 mg SQ daily (WT < 150 kg, CrCl > 10-29 mL/min) *Enoxaparin/Lovenox 30 mg SQ BID (WT < 150 kg, CrCl > 30 mL/min) AND *Sequential Compression Device (SCD) Assessment and Plan Problem List: (1) CVA (cerebral vascular accident) ICD Codes: I63.9 - Cerebral infarction, unspecified Status: Acute Plan: CT noted. Check carotid u/s. ? MRI based on pacer type. Will have MRI team evaluate for compatibility. Neuro consulted and case D/W Dr Ellis by ER provider per report. Pt already on ASA/Plavix. Future anticoag rec per neuro. Possible triple therapy ? (2) Hypertension ICD Codes: I10 - Essential (primary) hypertension Plan: permissive HTN first 36-48 hrs Only treat BP >205/105 (3) Hyperlipemia ICD Codes: E78.5 - Hyperlipidemia, unspecified Status: Chronic Plan: continue statin, check labs (4) Major depression, recurrent ICD Codes: F33.9 - Major depressive disorder, recurrent, unspecified Status: Chronic Plan: continue rx and continue anxiolytic as needed. (5) GERD (gastroesophageal reflux disease) ICD Codes: K21.9 - Gastro-esophageal reflux disease without esophagitis Status: Chronic Plan: ppi (6) Hypothyroid ICD Codes: E03.9 - Hypothyroidism, unspecified Status: Chronic Plan: continue rx. Check TSH (7) S/p TAVR (transcatheter aortic valve replacement), bioprosthetic ICD Codes: Z95.3 - Presence of xenogenic heart valve Status: Chronic Plan: continue outpt care (8) Diabetic nephropathy associated with type 2 diabetes mellitus ICD Codes: E11.21 - Type 2 diabetes mellitus with diabetic nephropathy Status: Chronic Plan: Accu check with SSI coverage. Hold oral hypoglycemics while inpt A1c 7.6 in May 2017. Follows with Dr Wilson outpt Code Status Full Discussed Condition With Patient and ER provider Problem Qualifiers (1) CVA (cerebral vascular accident): Qualified Codes: I63.9 - Cerebral infarction, unspecified (2) Hypertension: Qualified Codes: I10 - Essential (primary) hypertension Micky Vyas MD PhD Jun 20, 2017 16:45
[2017-06-20] MEDS: INSULIN ASPART SUPPLEMENTAL SCALE SQ SCH ×2 (17:00→20:57)
[2017-06-20 17:05] VITALS: BP 123/66
[2017-06-20 17:25] LABS: C-REACTIVE PROTEIN 1.04 MG/DL (0.00-0.30)
[2017-06-20 17:29] LABS: TROPONIN I LESS THAN 0.02 NG/ML (0.02-0.05)
[2017-06-20 18:23] LABS: ALBUMIN 3.8 GM/DL (3.4-5.0); ALT (GPT) 24 U/L (10-53); AST (GOT) 18 U/L (15-37); BICARBONATE 24.2 MEQ/L (21.0-32.0); BLOOD UREA NITROGEN 36 MG/DL (7-18); CALCIUM 8.7 MG/DL (8.5-10.1); CHLORIDE 108 MEQ/L (98-107); CREATININE 0.89 MG/DL (0.50-1.00); GLOMERULAR FILTRATION RATE 61 ML/MIN (>89); GLUCOSE,RANDOM 111 MG/DL (74-106); MAGNESIUM 2.2 MG/DL (1.5-2.5); SODIUM (NA) 141 MEQ/L (136-145)
[2017-06-20 18:24] LABS: ALKALINE PHOSPHATASE 108 U/L (45-117); TOTAL BILIRUBIN ADULT 0.2 MG/DL (0.2-1.0); TOTAL PROTEIN 7.6 GM/DL (6.4-8.2)
[2017-06-20 18:30] VITALS: BP 140/63; PULSE 71; RESP 18; TEMP 97; O2SAT 94
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
[2017-06-20 20:00] VITALS: BP 161/70; PULSE 76; RESP 20; TEMP 96.5; O2SAT 93
[2017-06-20] MEDS: ENOXAPARIN SODIUM 60 MG/0.6 ML SYRINGE SQ SCH (20:54)
[2017-06-20] MEDS ORDERED: GLUCAGON 1 MG/ML VIAL OTHER PRN (21:15)
[2017-06-20] MEDS ORDERED: SODIUM CHLORIDE 0.9% FLUSH 10 ML FLUSH IV FLUSH PRN (21:15)
[2017-06-20] MEDS ORDERED: DEXTROSE 50% IN WATER 50 ML VIAL(D50) IV PUSH PRN (21:15)
--- NOTE | 2017-06-20 21:28 | MB ---
cc: Richard Ellis MD, PhD DATE: 06/20/2017 REASON FOR CONSULTATION: Stroke. HISTORY OF PRESENT ILLNESS: Ms. Wade is a very nice, 81-year-old woman who earlier this morning around 9 a.m., went to walk, was noting weakness in the right leg, also had some weakness of the right arm and numbness. She had no speech changes or other neurological complaints. She had a TAVR procedure in 01/2017. Also has a pacemaker in place. She takes Plavix as well as aspirin therapy. PAST MEDICAL HISTORY: History of aortic stenosis, status post TAVR, diabetes with retinopathy and nephropathy, hyperlipidemia, hypertension, hypothyroidism, morbid obesity, paroxysmal ventricular tachycardia, pulmonary hypertension, YUMIKO, CABG procedure, cataract surgery, gastric banding. MEDICATIONS AT HOME: 1. Biotene. 2. Plavix 75 mg daily. 3. Lasix 40 mg daily. 4. ____. 5. Aspirin 81 mg daily. 6. Metoprolol 25 mg b.i.d. 7. Simvastatin 20 mg daily. 8. Omeprazole 20 mg daily. 9. Multivitamin. 10. Metformin. 11. Levothyroxine. 12. Glucosamine. 13. Biotin. 14. Alprazolam. ALLERGIES: BENAZEPRIL, CAPTOPRIL, ENALAPRIL, FOSINOPRIL, LISINOPRIL, QUINAPRIL. SOCIAL HISTORY: Stopped smoking 30 years ago. Occasional alcohol. NEUROLOGICAL PHYSICAL EXAMINATION: VITAL SIGNS: Blood pressure 140/63, pulse is 71, respiratory rate is 18, temperature 97 degrees. HIGHER CORTICAL FUNCTION: Normal. Cranial nerves intact. MOTOR EXAMINATION: She has mild weakness in the right arm compared to the left, 4+/5 on the right. The right leg is a little bit weaker at 4/5 proximal and distal with normal strength in the left. She has got diminished fine motor skills in the right hand. There is a mild pronator drift right upper extremity. Reflexes are symmetric. IMAGING: A CT of the brain showed small areas of low density in subcortical white matter and high ____ frontal regions bilaterally not present previously. They do not appear to be acute. No evidence of hemorrhage. LABORATORY DATA: White count 12,300, hemoglobin 12.9, hematocrit 39%, platelet count 256,000. PT 10.1, INR 1, aPTT 26.7. Sodium is 142, potassium 4.4, chloride 104, CO2 24, the BUN is 38, creatinine 0.89, GFR 61, glucose 117, AST 18, ALT is 24. IMPRESSION: Acute left hemisphere stroke. RECOMMENDATION: Continue Plavix and aspirin for now. Continue to monitor cardiac telemetry also check echocardiogram and carotid ultrasound. If there does appear on testing to be the potential for cardioembolic source, consider anticoagulation therapy. Richard Ellis MD, PhD CEZAR/rt , 09:01 PM , 09:28 PM
[2017-06-20 21:42] VITALS: O2SAT 97
[2017-06-20] MEDS: ALPRAZolam 0.25 MG TAB PO PRN (21:57)
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
[2017-06-20 23:00] VITALS: PULSE 70
[2017-06-21] VITALS (9 sets, daily range): BP systolic 113–145; BP diastolic 60–75; PULSE 72–106; RESP 18–22; TEMP 96.2–98; O2SAT 93–97
[2017-06-21] MEDS: LEVOTHYROXINE SODIUM 25 MCG TAB PO SCH (05:44)
[2017-06-21] MEDS: LEVOTHYROXINE SODIUM 112 MCG TAB PO SCH (05:44)
[2017-06-21] MEDS: INSULIN ASPART SUPPLEMENTAL SCALE SQ SCH ×4 (08:00→20:18)
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
[2017-06-21] MEDS: ENOXAPARIN SODIUM 60 MG/0.6 ML SYRINGE SQ SCH (08:39)
[2017-06-21] MEDS: CLOPIDOGREL 75 MG TAB PO SCH (08:40)
[2017-06-21] MEDS: PRAVASTATIN SOD 40 MG TAB PO SCH (08:40)
[2017-06-21] MEDS: PANTOPRAZOLE SOD 40 MG DELAYED RELEASE TAB PO SCH (08:40)
[2017-06-21] MEDS: SODIUM CHLORIDE 0.9% FLUSH 10 ML FLUSH IV FLUSH SCH ×2 (08:41→20:14)
--- NOTE | 2017-06-21 09:46 | RADRPT ---
EXAM DATE/TIME: 06/21/2017 08:47 [facility] COMPARISON: No previous studies available for comparison. EXTERNAL COMPARISON : [facility], CTA CAROTID ARTERIES W/ 3D PROCESSING, October 05, 2015[facility], CT CAR OTID ARTERIES W/ 3D PROCESSING, May 09, 2011. INDICATIONS : Right side weakness. MEDICAL HISTORY : Hypothyroidism. Hypercholesterolemia. Hypertension. Right side weakness. Anticoagulant therapy. Sleep apnea. Ulcers. Joint pain. Diabetes. Anxiety. Claustrophobia. Blood transfusions. SURGICAL HISTORY : Tonsillectomy. CABG. Heart valve replacement. Bypass surgery. Cardiac catheterization. Pacemaker pl acement. Left leg surgery. Adjustable gastric band surgery. ENCOUNTER: Initial ACUITY: 1 day PAIN SCORE: 0/10 LOCATION: Bilateral neck PEAK SYSTOLIC VELOCITIES (cm/sec): ICA/CCA RATIO: Right: 3.6 Left: 1.5 ICA: Right: 232 Left: 113 CCA: Right: 64 Left: 74 ECA: Right: 141 Left: 245 VERTEBRAL: Right: 86 antegrade Left: 57 antegrade Elevated flow velocities and ICA/CCA ratios have been found to correlate with increased degrees of vessel stenosis, calculated as percentage of diameter relative to a normal segment of distal ICA/CCA FINDINGS: Significant heterogeneous calcified plaque is identified in both carotid bifurcations extending into the origin of the internal carotid arteries. RIGHT CAROTID: Significant elevation of peak systolic velocity and spectral broadening is identified in the proximal ICA. Elevated ICA/CCA ratio is characteristic of a high grade stenosis greater than 80%. LEFT CAROTID: Mild to moderate stenosis in the 30-49% range is noted. There is no significant spectral broadening. VERTEBRAL ARTERIES: Antegrade flow is seen in both vertebral arteries. MISCELLANEOUS: None. CONCLUSION: 1. Bilateral heterogeneous calcified plaques. 2. High-grade stenosis proximal right internal carotid artery measuring greater than 80% based on pea k systolic velocities and increased ICA/CCA ratio. 3. [id number] left internal carotid artery stenosis. 4. Antegrade flow in both vertebral arteries. Bryce Carrillo MD on June 21, 2017 at 9:39 Board Certified Radiologist. This report was verified electronically.
[2017-06-21 10:24] LABS: CHOLESTEROL 150 MG/DL (120-200); TRIGLYCERIDES 157 MG/DL (42-150)
[2017-06-21 10:26] LABS: CHOLESTEROL/ HDL RATIO 3.67 RATIO; HDL CHOLESTEROL 40.8 MG/DL (40.0-60.0); LDL CHOLESTEROL 78 MG/DL (0-99)
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
[2017-06-21] MEDS: ALPRAZolam 0.25 MG TAB PO PRN ×2 (12:05→21:28)
--- NOTE | 2017-06-21 13:21 | RADRPT ---
EXAM DATE/TIME: 06/21/2017 12:35 [facility] COMPARISON: No previous studies available for comparison. INDICATIONS : Right sided weakness. CVA. MEDICAL HISTORY : Hypertension. Diabetes mellitus type 2. SURGICAL HISTORY : CABG Tonsillectomy. Pacemaker. Lapband. ENCOUNTER: Subsequent ACUITY: 2 day PAIN SCORE: 0/10 LOCATION: head. Please note a normal MRA of the brain does not entirely exclude the possibility of a small aneurysm, nor the possibility of distal intracranial vessel disease. TECHNIQUE: 3D time of flight MRA was performed. Source images, multiplanar STS MIP, and 3D volume MIP reconstru ctions were reviewed. FINDINGS: Anterior circulation: Distal intracranial internal carotid arteries are patent with flow extending to the middle and anteri or cerebral arteries. There is no evidence for aneurysm, vessel truncation or stenosis, and no eviden ce for vascular malformation. Posterior circulation: Symmetric distal vertebral arteries with flow extending to basilar artery. There is no evidence for aneurysm, vessel truncation or stenosis, and no evidence for vascular malformation. CONCLUSION: 1. Unremarkable MRA examination of the [place]. Specifically, no evidence for large vessel o cclusion. Sascha Alonso MD on June 21, 2017 at 13:17 Board Certified Radiologist. This report was verified electronically.
--- NOTE | 2017-06-21 13:31 | RADRPT ---
EXAM DATE/TIME: 06/21/2017 12:35 [facility] COMPARISON: CT BRAIN W/O CONTRAST, June 20, 2017, 14:39. INDICATIONS : Right sided weakness. CVA. MEDICAL HISTORY : Diabetes mellitus type 2. Hypertension. SURGICAL HISTORY : Pacemaker. Tonsillectomy. CABG Lapband. ENCOUNTER: Subsequent ACUITY: 2 day PAIN SCORE: 0/10 LOCATION: head. TECHNIQUE: Multiplanar, multisequence MRI of the brain was performed without contrast. FINDINGS: CEREBRUM: Moderate diffuse cerebral atrophy. The ventricles are normal for degree of atrophy. No evidence of m idline shift, mass lesion, hemorrhage or acute infarction. No extraaxial fluid collections are seen. The pituitary gland and suprasellar cistern are normal in configuration. WHITE MATTER: Multiple focal regions of T2 prolongation in the left posterior parietal mid to high convexities demo nstrating restricted diffusion consistent with subacute lacunar infarcts. Additional focal deep periv entricular and white matter abnormalities do not demonstrate strictured effusion. POSTERIOR FOSSA: The cerebellum and brainstem are intact. The 4th ventricle is midline. The cerebellopontine angle is unremarkable. The cerebellar tonsils are normal in position. DIFFUSION IMAGING: No additional focal areas of restricted diffusion are seen. No evidence of acute infarction. EXTRACRANIAL: The visualized portions of the orbits and paranasal sinuses are unremarkable. CONCLUSION: 1. Subacute white matter lacunar infarcts in the left posterior parietal mid to high convexities. 2. Additional small vessel periventricular ischemic white matter demyelination and chronic appearing white matter lacunar infarcts in the high convexities. Sascha Alonso MD on June 21, 2017 at 13:19 Board Certified Radiologist. This report was verified electronically.
--- NOTE | 2017-06-21 14:26 | EKG ---
Date Performed: 06/20/2017 Time Performed: 14:36:59 PTAGE: 81 years EKG: ELECTRONIC VENTRICULAR PACEMAKER ABNORMAL RHYTHM ECG Compared to PREVIOUS TRACING the rhythm is now paced PREVIOUS TRACIN06/08/2008 07.12 DOCTOR: Kyle Villa Interpretating Date/Time 06/21/2017 14:24:44
--- NOTE | 2017-06-21 14:26 | EKG ---
Date Performed: 06/20/2017 Time Performed: 16:40:07 PTAGE: 81 years EKG: ELECTRONIC VENTRICULAR PACEMAKER ABNORMAL RHYTHM ECG Since PREVIOUS TRACING , no significant change noted PREVIOUS TRACIN06/20/2017 14.36 DOCTOR: Kyle Villa Interpretating Date/Time 06/21/2017 14:24:52
--- NOTE | 2017-06-21 15:02 | ECHRPT ---
Indication: TIA CONCLUSIONS Normal left ventricular size. Wall thickness is measured at the upper limits of normal. The left ventricular systolic function is mildly reduced with an estimated ejection fraction in the range of 45- 50%. Trace mitral valve regurgitation. The aortic valve prosthesis is normal to two-dimensional, color flow and Doppler interrogation. BP: / HR: Rhythm: MEASUREMENTS (Male / Female) Normal Values Technical Quality: 2D ECHO LV Diastolic Diameter PLAX 4.6 cm 4.2 - 5.9 / 3.9 - 5.3 cm LV Systolic Diameter PLAX 3.8 cm IVS Diastolic Thickness 1.2 cm 0.6 - 1.0 / 0.6 - 0.9 cm LVPW Diastolic Thickness 0.9 cm 0.6 - 1.0 / 0.6 - 0.9 cm LV Relative Wall Thickness 0.4 RV Internal Dim ED PLAX 2.1 cm LA Systolic Diameter LX 4.1 cm 3.0 - 4.0 / 2.7 - 3.8 cm DOPPLER Mitral E Point Velocity 93.2 cm/s Mitral A Point Velocity 152.0 cm/s Mitral E to A Ratio 0.6 TR Peak Velocity 191.0 cm/s TR Peak Gradient 14.6 mmHg Right Atrial Pressure 5.0 mmHg Pulmonary Artery Systolic Pressu 19.6 mmHg Right Ventricular Systolic Press 19.6 mmHg FINDINGS LEFT VENTRICLE Normal left ventricular size. Wall thickness is measured at the upper limits of normal. The left ventricular systolic function is mildly reduced with an estimated ejection fraction in the range of 45- 50%. RIGHT VENTRICLE Normal right ventricular size and systolic function. LEFT ATRIUM The left atrial size is normal. RIGHT ATRIUM The right atrial size is normal. ATRIAL SEPTUM Normal atrial septal thickness without atrial level shunting by limited color doppler interrogation. AORTA The aortic root and proximal ascending aorta are normal in size on limited imaging. MITRAL VALVE Trace mitral valve regurgitation. AORTIC VALVE The aortic valve prosthesis is normal to two-dimensional, color flow and Doppler interrogation. TRICUSPID VALVE Structurally normal tricuspid valve. No tricuspid valve stenosis or regurgitation. PULMONARY VALVE No pulmonary valve regurgitation or stenosis. VESSELS The inferior vena cava is normal in size. PERICARDIUM No pericardial effusion. Carlitos Robledo MD, FACC, FSCAI (Electronically Signed) Final Date:21 June 2017 15:00
--- NOTE | 2017-06-21 17:31 | HHI.PR ---
Addendum to Inpatient Note Addendum Reason: Additional Documentation Additional Information Had d/w Mariann Ellis and Leobardo Whitney. I reviewed studies and pt's current condition, hospital course. After long discussion, it was thought that use of Plavix + NOAC w/o ASA may be best choice for pt. As was discussed there is no perfect answer for anticoagulation combination for her, but she has demonstrated definitively that she is at risk for CVA even on dual antiplatelet therapy. I subsequently had long d/w pt re: risk/benefit/side effect profile of proposed plan of treatment with anticoag agents. I also advised that she would likely need CEA in future. She would like Dr Leobardo Whitney to perform this as he is quite familiar with her case and hx. Dr Whitney advised that he would get her into his office quickly after her d/c from hospital to have discussion re: future tx plans/options. Will therefore stop ASA and start her on Xarelto 20mg/d in addition to her Plavix. She is strongly encouraged to observe fall precautions and use assistive device as needed. Micky Vyas MD PhD Jun 21, 2017 17:30
[2017-06-21 18:18] LABS: HEMOGLOBIN A1C 7.2 % (4.3-6.0)
[2017-06-21] MEDS: RIVAROXABAN 20 MG TAB PO SCH (20:14)
[2017-06-22] VITALS: BP 126/62; PULSE 79; RESP 20; TEMP 96; O2SAT 97
[2017-06-22 04:10] VITALS: BP 152/67; PULSE 82; RESP 20; TEMP 96.8; O2SAT 96
[2017-06-22] MEDS: LEVOTHYROXINE SODIUM 25 MCG TAB PO SCH (05:09)
[2017-06-22] MEDS: LEVOTHYROXINE SODIUM 112 MCG TAB PO SCH (05:09)
[2017-06-22] MEDS: RIVAROXABAN 20 MG TAB PO SCH (05:10)
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
[2017-06-22] MEDS ORDERED: PANT40TA3 PO (06:29)
[2017-06-22] MEDS ORDERED: METO25TA3 PO (06:29)
[2017-06-22] MEDS ORDERED: XARE20TA PO (06:29)
[2017-06-22 06:31] LABS: AUTOMATED NEUTROPHIL # 4.5 TH/MM3 (1.8-7.7); BASOPHIL % 0.4 % (0.0-2.0); EOSINOPHIL # 0.3 TH/MM3 (0-0.4); HEMATOCRIT 36.7 % (35.0-46.0); HEMOGLOBIN 11.9 GM/DL (11.6-15.3); LYMPH % 29.3 % (9.0-44.0); LYMPHOCYTE # 2.4 TH/MM3 (1.0-4.8); MEAN CELL VOLUME 86.9 FL (80.0-100.0); MEAN CORPUSCULAR HEMOGLOBIN 28.2 PG (27.0-34.0); MEAN CORPUSCULAR HGB CONC 32.5 % (32.0-36.0); MEAN PLATELET VOLUME 7.9 FL (7.0-11.0); MONO % 11.7 % (0.0-8.0); NEUT % 54.6 % (16.0-70.0); PLATELET COUNT 210 TH/MM3 (150-450); RED BLOOD COUNT 4.23 MIL/MM3 (4.00-5.30); RED CELL DISTRIBUTION WIDTH 13.6 % (11.6-17.2); WHITE BLOOD COUNT 8.2 TH/MM3 (4.0-11.0)
[2017-06-22] MEDS ORDERED: RIVAROXABAN 20 MG TAB PO SCH (07:00)
[2017-06-22 08:00] VITALS: BP 143/81; PULSE 75; RESP 20; TEMP 97.2; O2SAT 96
[2017-06-22 08:05] VITALS: O2SAT 95
[2017-06-22] MEDS: INSULIN ASPART SUPPLEMENTAL SCALE SQ SCH (08:08)
[2017-06-22] MEDS: PRAVASTATIN SOD 40 MG TAB PO SCH (08:53)
[2017-06-22] MEDS: CLOPIDOGREL 75 MG TAB PO SCH (08:53)
[2017-06-22] MEDS: PANTOPRAZOLE SOD 40 MG DELAYED RELEASE TAB PO SCH (08:53)
[2017-06-22] MEDS: SODIUM CHLORIDE 0.9% FLUSH 10 ML FLUSH IV FLUSH SCH (09:00)
--- NOTE | 2017-06-22 09:09 | HHI.PR ---
Addendum to Inpatient Note Addendum Reason: Additional Documentation Additional Information I spoke with Chriss (PT) re: pt's need for assistive device. He advised that she has been walking independently. Will d/c home with PT rather than to rehab. Communicated with Dr Ellis who agrees with d/c planning. I subsequently spoke with pt's son, Yovanny at her request. We discussed plan of care, r/b/se of tx plan. He was appreciative of the call. Micky Vyas MD PhD Jun 22, 2017 09:09
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
--- NOTE | 2017-06-22 09:17 | HHI.FF ---
Face to Face Verification Diagnosis: (1) Acute right-sided weakness (2) CVA (cerebral vascular accident) Physical Therapy Order: Evaluate and Treat, Improve ambulation, Strength and gait training Occupational Therapy Order: Fine motor coordination Home Health Nursing Order: Medical education Signs/symptoms of disease process Diabetic education Medication education-adverse effect Pulper Operator Order: To Evaluate: Living conditions/environment I have seen patient Dhara Wade on 06/22/17. My clinical findings support the need for the requested home health care services because: Deconditioned w/ increased weakness High risk of falls I certify that my clinical findings support that this patient is homebound because: Unsteady gait/balance Unable to use public transportation Micky Vyas MD PhD Jun 22, 2017 09:17
--- NOTE | 2017-06-23 09:27 | HM ---
Date Performed: 06/20/2017 Time Performed: 21:12:00 HOOKUP DATE: 06/20/17 09:12:00 PM Wed ANALYSIS START TIME: 06/20/2017 9:17:00 PM ANALYSIS END TIME: 06/21/2017 12:30:43 PM PATIENT AGE: 81 PATIENT HEIGHT PATIENT WEIGHT DRUG LIST PATIENT DIAGNOSIS: CVA TEST NARRATIVE: The patient's average heart rate was 77 BPM. No episodes of tachycardia wer e noted. No episodes of bradycardia were noted. No pauses exceeding 2.0 seconds were noted. 428 ventricular ectopics, which represented 1% of the total beat count, were noted. The highest vent ricular ectopic frequency occurred from 09:00 AM to 10:00 AM Beth. During this time 55 VE(s) occurred . Ventricular ectopics were observed as 376 isolated beat(s), as 15 couplet(s) and as 7 run(s). No supraventricular ectopics were noted. No episodes of ST depression (defined as -1.0 mm or more ) were noted in channel 1. No episodes of ST depression (defined as -1.0 mm or more) were noted in c christophenel 2. No episodes of ST depression (defined as -1.0 mm or more) were noted in channel 3. ONLY 15 HOURS RECORDED TEST INTERPRETATION: Possible AV pacing PVCs No pause No supraventricular tachycardia No ventric ular tachycardia observed There is no entry in the diary Signed by : Everton Diana
== END 2017-06-22 10:35 | disposition home health service (06) ==
LOC: PHED 14:15 → PHEDA 16:11 → PH3A 17:09
PROVIDERS: ADMIT Family Medicine; ATTEND Family Medicine
DX: I63.9 Cerebral infarction, unspecified (principal); R06.02 Shortness of breath; I10 Essential (primary) hypertension; E78.00 Pure hypercholesterolemia, unspecified; E11.319 Type 2 diabetes mellitus with unspecified diabetic retinopathy without macular edema; E11.21 Type 2 diabetes mellitus with diabetic nephropathy; I35.0 Nonrheumatic aortic (valve) stenosis; E03.9 Hypothyroidism, unspecified; K21.9 Gastro-esophageal reflux disease without esophagitis; I27.20 Pulmonary hypertension, unspecified; G47.33 Obstructive sleep apnea (adult) (pediatric); R94.31 Abnormal electrocardiogram [ECG] [EKG]; F33.9 Major depressive disorder, recurrent, unspecified; F41.9 Anxiety disorder, unspecified; E66.01 Morbid (severe) obesity due to excess calories; Z95.0 Presence of cardiac pacemaker; Z79.82 Long term (current) use of aspirin; Z79.02 Long term (current) use of antithrombotics/antiplatelets; Z91.81 History of falling; Z95.3 Presence of xenogenic heart valve; Z95.1 Presence of aortocoronary bypass graft; Z79.899 Other long term (current) drug therapy; Z79.84 Long term (current) use of oral hypoglycemic drugs; Z87.891 Personal history of nicotine dependence
CPT/HCPCS: 70450; 70544; 70551; 72170; 80053; 80061; 82607; 82948; 83036; 83735; 84443; 84484; 85025; 85610; 85730; 86038; 86140; 93005; 93225; 93226; 93306; 93880; 96372; 97162; 97530; 99285; G0378; G8987; G8988; J1650; J1815; 80048

== ENCOUNTER 2017-07-10 07:28 | Day surgery (SDC) | payer MEDICARE ==
[~2017-07-10 07:28] MED LIST changes: -ASPI81TA23 PO; -BIOTSPR PO; +GLIM1TAB PO; -OMEP20TA93 PO; +PANT40TA3 PO; +XARE20TA PO
[2017-07-10] MEDS ORDERED: ESCI20TA PO (08:43)
[2017-07-10] MEDS ORDERED: CHLORHEXIDINE GLUCONATE 2 % 1 PACK (2 CLOTHS) TOPICAL PRN (09:00)
[2017-07-10] MEDS ORDERED: SODIUM CHLORID 0.9% 500 ML IV PRN (09:00)
[2017-07-10] MEDS ORDERED: METOPROLOL TARTRATE 25 MG TAB PO PRN (09:00)
[2017-07-10] MEDS ORDERED: LACTATED RINGER'S 1000 ML IV PRN (09:00)
[2017-07-10] MEDS ORDERED: POVIDONE IODINE 5% (ANTISEPSIS KIT) 4 APPLICATIONS EACH NARE PRN (09:00)
[2017-07-10] MEDS ORDERED: PROPOFOL 200 MG/20 ML AMP ONE ×2 (09:01)
[2017-07-10] MEDS ORDERED: LIDOCAINE HCL 2% 100 MG/5 ML SYRINGE ONE (09:02)
[2017-07-10] MEDS ORDERED: ePHEDrine/NS 25 MG/5 ML SYRINGE ONE (09:03)
--- NOTE | 2017-07-10 13:56 | EKG ---
Date Performed: 07/10/2017 Time Performed: 08:26:48 PTAGE: 81 years EKG: Sinus rhythm demand ventricular pacemaker Abnormal ECG PREVIOUS TRACING : 06/20/2017 16.40 DOCTOR: Noe Patrick Interpretating Date/Time 07/10/2017 13:53:37
--- NOTE | 2017-07-10 14:41 | ECHRPT ---
Indication: CVA CONCLUSIONS Normal left ventricular size. The left ventricular systolic function is low normal with an estimated ejection fraction in the rang e of 50- 55%. The left atrial size is moderately dilated. Normal left atrial appendage size with no evidence of thrombus formation. Atrial septal aneurysm is present (benign finding). A patent foramen ovale is present with a [id number] shunt demonstrated by color flow Doppler interrogation. Right to left atrial level shunt is observed with agitated saline contrast administration. Mild thickening of the mitral valve leaflets. Trace mitral valve regurgitation. Mild thickening of the tricuspid valve leaflets. There is mild tricuspid valve regurgitation. BP: / HR: Rhythm: Technical Quality: Medications Complications Proc. Components FINDINGS LEFT VENTRICLE Normal left ventricular size. The left ventricular systolic function is low normal with an estimated ejection fraction in the rang e of 50- 55%. RIGHT VENTRICLE Normal right ventricular size and systolic function. LEFT ATRIUM The left atrial size is moderately dilated. RIGHT ATRIUM The right atrial size is normal. ATRIAL APPENDAGES Normal left atrial appendage size with no evidence of thrombus formation. ATRIAL SEPTUM Atrial septal aneurysm is present (benign finding). A patent foramen ovale is present with a [id number] shunt demonstrated by color flow Doppler interrogation. Right to left atrial level shunt is observed with agitated saline contrast administration. AORTA The aortic root and proximal ascending aorta are normal in size on limited imaging. MITRAL VALVE Mild thickening of the mitral valve leaflets. Trace mitral valve regurgitation. AORTIC VALVE Trileaflet aortic valve. No aortic valve stenosis or regurgitation. TRICUSPID VALVE Mild thickening of the tricuspid valve leaflets. There is mild tricuspid valve regurgitation. VESSELS The inferior vena cava is normal in size. PULMONARY VALVE The pulmonary valve is not well visualized. PERICADIUM No pericardial effusion. Noe Patrick MD, FACC (Electronically Signed) Final Date:10 Jul 2017 14:40
== END 2017-07-10 10:47 | disposition home or self-care (01) ==
LOC: HSDC 07:28 → HDIC 07:29 → HSDC 10:47
PROVIDERS: ATTEND Internal Medicine
DX: Z86.73 Personal history of transient ischemic attack (TIA), and cerebral infarction without residual deficits (principal); R94.31 Abnormal electrocardiogram [ECG] [EKG]; E11.9 Type 2 diabetes mellitus without complications
CPT/HCPCS: 82948; 93005; 93312; 93320; 93325